=== PATIENT | male | born 1995 | race Caucasian/White ===

== ENCOUNTER 2018-06-16 15:50 | Emergency (ER) | payer OTHER ==
[2018-06-16 15:59] VITALS: BP 139/84; PULSE 68; RESP 20; TEMP 97.7
[2018-06-16] MEDS ORDERED: IBUPROFEN 600 MG TAB PO STA (16:07)
--- NOTE | 2018-06-16 16:16 | ED ---
Fall HPI - General Chief Complaint: Fall Stated Complaint: Arm injury Time Seen by Provider: 06/16/18 16:04 Source: patient, RN notes reviewed Mode of arrival: ambulatory Limitations: no limitations - History of Present Illness Initial Comments: 23-year-old male presents emergency Department chief complaint of left elbow pain. Patient states that he was snowboarding states that his snowboard caught the edge causing him to fall forward landing on his left arm. Patient states that he iced his elbow at the [facility] there was advised to be seen. Patient states he cannot fully straighten his left elbow. He has had a prior injury. Patient has a paresthesias. Patient states is painful with movement. Denies any other muscle skeletal injury no head injury.. - Related Data Previous Rx's Medication Instructions Recorded Ibuprofen [Motrin] 600 mg PO Q8HR PRN #30 tab 06/16/18 Allergies Allergy/AdvReac Type Severity Reaction Status Date / Time No Known Allergies Allergy Verified 06/16/18 15:59 Review of Systems ROS Statement: Those systems with pertinent positive or pertinent negative responses have been documented in the HPI. ROS Other: All systems not noted in ROS Statement are negative. Past Medical History Past Medical History: No Reported History History of Any Multi-Drug Resistant Organisms: None Reported Past Surgical History: No Surgical Hx Reported Past Psychological History: No Psychological Hx Reported Smoking Status: Never smoker Past Alcohol Use History: None Reported Past Drug Use History: None Reported General Exam Limitations: no limitations General appearance: alert, in no apparent distress Head exam: Present: atraumatic, normocephalic, normal inspection Neck exam: Present: normal inspection, full ROM. Absent: tenderness, meningismus, lymphadenopathy Respiratory exam: Present: normal lung sounds bilaterally. Absent: respiratory distress, wheezes, rales, rhonchi, stridor Cardiovascular Exam: Present: regular rate, normal rhythm, normal heart sounds. Absent: systolic murmur, diastolic murmur, rubs, gallop, clicks Extremities exam: Present: other (Left elbow patient unable to fully extend, pain with pronation supination, neurovascular intact no obvious deformity tenderness at the medial aspect of the left elbow) Skin exam: Present: warm, dry, intact, normal color. Absent: rash Course Vital Signs 06/16/18 15:57 Temperature 97.7 F Pulse Rate 68 Respiratory 20 Rate Blood Pressure 139/84 O2 Sat by Pulse 99 Oximetry Procedures - Orthopedic Splinting/Casting Injury #1 Side: left Upper Extremity Injury Location: long arm, elbow Upper Extremity Immobilizer: synthetic pre-padded splint Medical Decision Making - Medical Decision Making 23-year-old male presents emergency department for left elbow injury. Patient has radial head fracture. He was splinted and placed a sling. Patient will follow-up with orthopedics return parameters were discussed. Disposition Clinical Impression: Fall, Left radial head fracture Disposition: HOME SELF-CARE Condition: Stable Instructions (If sedation given, give patient instructions): Arm Fracture in Adults (ED) Additional Instructions: Please return to the Emergency Department if symptoms worsen or any other concerns. Prescriptions: Ibuprofen [Motrin] 600 mg PO Q8HR PRN #30 tab PRN Reason: Pain Is patient prescribed a controlled substance at d/c from ED?: No Referrals: Nonstaff,Physician [Primary Care Provider] - 1-2 days Alexis Banda MD [Medical Doctor] - 1-2 days Time of Disposition: 16:56
--- NOTE | 2018-06-16 16:25 | XR ---
EXAMINATION TYPE: XR elbow complete LT DATE OF EXAM: 06/16/2018 COMPARISON: NONE HISTORY: 23-year-old male with left elbow pain after snowboarding injury today TECHNIQUE: 3 views FINDINGS: Nondisplaced fracture along the lateral and volar aspect of the radial head. This has intra-articular extension but without any significant incongruence of the articular surface. Associated elbow joint effusion. No additional acute fracture or dislocation seen. IMPRESSION: Nondisplaced intra-articular fracture of the lateral and volar aspect of the radial head.
== END 2018-06-16 17:17 | disposition home or self-care (01) ==
LOC: EC 15:50
DX: S52.125A Nondisplaced fracture of head of left radius, initial encounter for closed fracture (principal); W19.XXXA Unspecified fall, initial encounter; Y93.23 Activity, snow (alpine) (downhill) skiing, snowboarding, sledding, tobogganing and snow tubing; Y92.89 Other specified places as the place of occurrence of the external cause
CPT/HCPCS: 29105; 99283

== ENCOUNTER 2018-11-25 12:37 | Emergency (ER) | payer OTHER ==
[2018-11-25 13:02] VITALS: BP 121/74; PULSE 57; RESP 18; TEMP 98.2
[2018-11-25] MEDS ORDERED: CARBAMIDE PEROXIDE 6.5% DROPS 15 ML BTL LEFT EAR STA (13:35)
--- NOTE | 2018-11-25 13:44 | ED ---
General Adult HPI - General Chief complaint: ENT Stated complaint: Ear pain Time Seen by Provider: 11/25/18 13:14 Source: patient Mode of arrival: ambulatory Limitations: no limitations - History of Present Illness Initial comments: 23-year-old male patient presents to the emergency department today for evaluation of decreased hearing from the left ear. Patient states he was cleaning his ears with Q-tips when he was suddenly unable to hear out of the left ear. Patient denies any pain or drainage from the ear. Patient states he has had some nasal congestion today so he is concerned he may have an ear infection. He denies any fever or chills with this. Denies any history of ear infections as an adult. Denies any history of diabetes. Patient denies any recent rash, shortness breath, chest pain, abdominal pain, nausea, vomiting, diarrhea, constipation, back pain, numbness, tingling, dizziness, weakness, hematuria, dysuria, urinary urgency, urinary frequency, headache, visual changes, or any other complaints. - Related Data Previous Rx's Medication Instructions Recorded Ibuprofen [Motrin] 600 mg PO Q8HR PRN #30 tab 06/16/18 Allergies Allergy/AdvReac Type Severity Reaction Status Date / Time No Known Allergies Allergy Verified 06/16/18 15:59 Review of Systems ROS Statement: Those systems with pertinent positive or pertinent negative responses have been documented in the HPI. ROS Other: All systems not noted in ROS Statement are negative. Past Medical History Past Medical History: No Reported History History of Any Multi-Drug Resistant Organisms: None Reported Past Surgical History: No Surgical Hx Reported Past Psychological History: No Psychological Hx Reported Smoking Status: Never smoker Past Alcohol Use History: None Reported Past Drug Use History: None Reported General Exam Limitations: no limitations General appearance: alert, in no apparent distress, other (Physical well- developed, well-nourished adult male patient in no acute distress. Vital signs upon presentation are temperature 98.2F, pulse 57, respirations 18, blood pressure 121/74, pulse ox 99% on room air.) Eye exam: Present: normal appearance, PERRL, EOMI. Absent: scleral icterus, conjunctival injection, periorbital swelling ENT exam: Present: mucous membranes moist. Absent: normal exam, TM's normal bilaterally (Right tympanic membrane appears normal. Left tympanic membrane is obscured by cerumen impaction.) Neck exam: Present: normal inspection. Absent: tenderness, meningismus, lymphadenopathy Respiratory exam: Present: normal lung sounds bilaterally. Absent: respiratory distress, wheezes, rales, rhonchi, stridor Cardiovascular Exam: Present: regular rate, normal rhythm, normal heart sounds. Absent: systolic murmur, diastolic murmur, rubs, gallop, clicks Neurological exam: Present: alert, oriented X3, CN II-XII intact Psychiatric exam: Present: normal affect, normal mood Skin exam: Present: warm, dry, intact, normal color. Absent: rash Course Vital Signs 11/25/18 13:00 Temperature 98.2 F Pulse Rate 57 L Respiratory 18 Rate Blood Pressure 121/74 O2 Sat by Pulse 99 Oximetry Medical Decision Making - Medical Decision Making 23-year-old male patient presents to the emergency department today for antwan luation of decreased hearing from the left ear. Physical examination did reveal left cerumen impaction. He had no external ear or mastoid tenderness. We did instill debrox drops and irrigated the ear. We did resolve impaction. Left tympanic membrane appears normal no evidence of infection. Patient does have improvement of symptoms. He'll be discharged at this time to follow-up with his primary care physician for recheck in 1-2 days. Return parameters were discussed in detail. He verbalizes understanding and agrees with this plan. Disposition Clinical Impression: Left ear impacted cerumen Disposition: HOME SELF-CARE Condition: Good Instructions (If sedation given, give patient instructions): Cerumen Impaction (ED) Additional Instructions: Follow-up with your primary care physician for recheck in 1-2 days. Return to the emergency department immediately for any new, worsening, or concerning symptoms. Is patient prescribed a controlled substance at d/c from ED?: No Referrals: Nonstaff,Physician [Primary Care Provider] - 1-2 days Time of Disposition: 14:34
== END 2018-11-25 14:50 | disposition home or self-care (01) ==
LOC: EC 12:37
DX: H61.22 Impacted cerumen, left ear (principal)
CPT/HCPCS: 99282